=== PATIENT | male | born 1955 | race Caucasian/White ===

== ENCOUNTER 2018-09-09 17:17 | Observation (INO) ==
--- NOTE | 2018-09-09 18:20 | ED.PDOC ---
General Time Seen by Physician: 18:13 <CHARLENE SHABAZZ - Last Filed: 09/09/18 21:10> Stated Complaint: 63 y old wants to know why he has blood in urine,some pain and diarrhea. Mode of Arrival: Walk-In Information Source: Patient Exam Limitations: No limitations Nursing and Triage Documentation Reviewed and Agree: Yes Does patient meet sepsis criteria?: No System Inflammatory Response Syndrome: Not Applicable <SAL LAURENT - Last Filed: 09/13/18 19:53> ED Provider: Dr. SAL LAURENT Chief Complaint: Kidney Stone Primary Care Provider: ARELIS CEDEÑO Sepsis Protocol: For patient's 13 years and over: Temp is 96.8 and below OR 101 and greater Pulse >90 BPM Resp >20/minute Acutely Altered Mental Status Are patient's symptoms suggestive of a new infection, such as: -Pneumonia -Skin, Soft Tissue -Endocarditis -UTI -Bone, Joint Infection -Implantable Device -Acute Abdominal Infection -Wound Infection -Meningitis -Blood Stream Catheter Infection -Unknown Complaint Exam - Complaint/Exam Patient Complains of: Reports: Dysuria Onset/Duration: few days coming on Symptoms Are: Still present Timing: Intermittent Initial Severity: Mild Current Severity: Mild Location of Pain: Reports: Suprapubic Character: Reports: Colicky Aggravating: Reports: None Alleviating: Reports: None Associated Signs and Symptoms: Reports: Back pain, Nausea <SAL LAURENT - Last Filed: 09/13/18 19:53> Review of Systems - Review Of Systems GI: Reports: Abdominal pain (suprapubic ) <CHARLENE SHABAZZ - Last Filed: 09/09/18 21:10> - Review Of Systems Constitutional: Reports: Chills Eyes: Reports: No symptoms Ears, Nose, Mouth, Throat: Reports: No symptoms Respiratory: Reports: No symptoms Cardiac: Reports: No symptoms GI: Reports: Diarrhea : Reports: Dysuria, Hematuria Musculoskeletal: Reports: No symptoms Skin: Reports: No symptoms Neurological: Reports: No symptoms Endocrine: Reports: No symptoms Hematologic/Lymphatic: Reports: No symptoms All Other Systems: Reviewed and Negative <SAL LAURENT - Last Filed: 09/13/18 19:53> Past Medical History - Past Medical History Cardiovascular: Reports: Hypertension. Denies: None Gastrointestinal: Reports: GERD. Denies: None <CHARLENE SHABAZZ Last Filed: 09/09/18 21:10> - Past Medical History Previously Healthy: No Endocrine: Reports: None Cardiovascular: Reports: None Respiratory: Reports: None Hematological: Reports: None Gastrointestinal: Reports: None Genitourinary: Reports: None Neuro/Psych: Reports: None Cancer: Reports: None - Surgical History General Surgical History: Reports: None - Family History Family History: Reports: Kidney - Social History Smoking Status: Never smoker Hx Substance Use: No Alcohol Screening: None <SAL LAURENT - Last Filed: 09/13/18 19:53> Physical Exam - Physical Exam Appearance: Well-appearing Ill-appearing: Mild Pain Distress: None Eyes: MIGEL, EOMI, Conjunctiva clear ENT: Ears normal, Nose normal, Oropharynx normal Neck: Supple Respiratory: Airway patent, Breath sounds clear Cardiovascular: RRR, Pulses normal GI/: Soft, Nontender, No masses Musculoskeletal: Normal strength, ROM intact, No edema, No calf tenderness Skin: Warm, Dry Neurological: Sensation intact, Motor intact, Reflexes intact, Cranial nerves intact, Alert, Oriented Psychiatric: Affect appropriate <SAL LAURENT - Last Filed: 09/13/18 19:53> Interpretation - Radiology Interpretation Radiology Interpretation By: Radiologist Radiology Results: Positive Exam Interpreted: CT Scan (Right pole of kidney Mass suspicious for renal cell carcinoma. ) <CHARLENE SHABAZZ Last Filed: 09/09/18 21:10> Re-Evaluation - Re-Evaluation Time of Re-Evaluation: 21:00 Status: Improved <CHARLENE SHABAZZ Last Filed: 09/09/18 21:10> Physician Notification - Case Discussed Physician Notified: Dr Cedeño Time of Notification: 20:30 (Admit for obeservation, AM labs, IF fluids IV Levaquin, IV pain Medications. ) <CHARLENE SHABAZZ - Last Filed: 09/09/18 21:10> Critical Care Note - Critical Care Note Total Time (mins): 30 <CHARLENE SHABAZZ - Last Filed: 09/09/18 21:10> <SAL LAURENT - Last Filed: 09/13/18 19:53> - Critical Care Note Comments: Discussed CT findings of Right Renal mass worrisome for renal cell cancer. Patient appeared to be anxious after getting the news Given anxiety medications Discussed with Dr Cedeño and agree to admit for observation with IV fluids antibiotics (CHARLENE SHABAZZ) Course - Course Hematology/Chemistry: 09/09/18 18:35 09/09/18 18:35 <CHARLENE SHABAZZ - Last Filed: 09/09/18 21:10> - Course Hematology/Chemistry: 09/10/18 05:15 09/10/18 05:15 <SAL LAURENT - Last Filed: 09/13/18 19:53> - Course Orders, Labs, Meds: Lab Review 09/09/18 09/09/18 09/09/18 17:46 18:35 18:35 WBC 10.68 H RBC 5.24 Hgb 14.2 Hct 43.3 MCV 82.6 MCH 27.1 MCHC 32.8 RDW Coeff of Christian 14.0 Plt Count 275 Immature Gran % (Auto) 0.3 Neut % (Auto) 85.6 Lymph % (Auto) 7.5 L Emmons % (Auto) 6.0 Eos % (Auto) 0.1 Baso % (Auto) 0.5 Immature Gran # (Auto) 0.0 Neut # (Auto) 9.2 H Lymph # (Auto) 0.8 Emmons # (Auto) 0.6 Eos # (Auto) 0.0 Baso # (Auto) 0.1 Sodium 139.7 Potassium 3.84 Chloride 102.8 Carbon Dioxide 25.0 Anion Gap 15.74 BUN 13.5 Creatinine 1.45 H Estimated GFR (MDRD) 49.00 BUN/Creatinine Ratio 9.31 Glucose 119.6 H Calcium 9.65 Total Bilirubin 0.62 AST 20.3 ALT 21.5 Alkaline Phosphatase 65.7 Total Protein 8.06 Albumin 4.50 Globulin 3.56 Albumin/Globulin Ratio 1.26 Amylase Lipase Urine Color Brown Urine Clarity Cloudy Urine pH 7.5 Ur Specific [place] 1.020 Urine Protein 2+ Urine Glucose (UA) Negative Urine Ketones Negative Urine Blood 3+ Urine Nitrite Negative Urine Bilirubin 1+ Urine Urobilinogen 2.0 Ur Leukocyte Esterase Negative Urine Microscopic RBC Tntc Ur Squamous Epith Cells Not present Urine Bacteria 2+ 09/09/18 18:35 WBC RBC Hgb Hct MCV MCH MCHC RDW Coeff of Christian Plt Count Immature Gran % (Auto) Neut % (Auto) Lymph % (Auto) Emmons % (Auto) Eos % (Auto) Baso % (Auto) Immature Gran # (Auto) Neut # (Auto) Lymph # (Auto) Emmons # (Auto) Eos # (Auto) Baso # (Auto) Sodium Potassium Chloride Carbon Dioxide Anion Gap BUN Creatinine Estimated GFR (MDRD) BUN/Creatinine Ratio Glucose Calcium Total Bilirubin AST ALT Alkaline Phosphatase Total Protein Albumin Globulin Albumin/Globulin Ratio Amylase 66.0 Lipase 97.8 Urine Color Urine Clarity Urine pH Ur Specific [place] Urine Protein Urine Glucose (UA) Urine Ketones Urine Blood Urine Nitrite Urine Bilirubin Urine Urobilinogen Ur Leukocyte Esterase Urine Microscopic RBC Ur Squamous Epith Cells Urine Bacteria Orders Category Date Time Status IV [ED IV/MEDIPORT/POWERPORT] .ONCE EMERGENCY 09/09/18 18:48 Active CBC W/ AUTO DIFF Stat LAB 09/09/18 18:35 Completed COMPREHENSIVE METABOLIC PANEL Stat LAB 09/09/18 18:35 Completed URINALYSIS C & S IF INDICATED Stat LAB 09/09/18 17:46 Completed URINE CULTURE Stat LAB 09/09/18 17:46 Completed 0.9 % Sodium Chloride [Saline Flush] MEDS 09/09/18 18:48 Discontinued 1 syr IVF PRN PRN Ketorolac Tromethamine [Toradol] MEDS 09/09/18 18:49 Discontinued 30 mg IVP ONCE STA Levofloxacin/D5w [Levaquin] 100 ml MEDS 09/09/18 20:11 Discontinued IV .STK-MED Levofloxacin/D5w [Levaquin] 500 mg MEDS 09/09/18 20:07 Discontinued Premix 100 ml D5w 1 bag IV ONCE Ondansetron HCl/Pf [Zofran 4 mg/2 ml] MEDS 09/09/18 18:50 Discontinued 4 mg IVP ONCE STA Sodium Chloride 0.9% [Sodium Chloride] 1,000 ml MEDS 09/09/18 18:[address] ABD/PEL WO RENAL STONE PROT Stat RADS 09/09/18 18:26 Completed Medications Discontinued Medications Generic Name Dose Route Start Last Admin Trade Name Freq PRN Reason Stop Dose Admin Aspirin 81 mg 09/10/18 08:00 09/10/18 08:28 Aspirin Chewable PO 81 mg DAILYWM REBECCA Administration Bisoprolol Fumarate/HCTZ 1 tab 09/10/18 09:00 09/10/18 08:28 Ziac 5-6.25 Mg PO 1 tab DAILY REBECCA Administration Cholecalciferol 1,000 unit 09/11/18 09:00 Vitamin D PO EVERY OTHER DAY REBECCA Sodium Chloride 1,000 mls @ 1,000 mls/hr 09/09/18 18:49 09/09/18 18:58 Sodium Chloride IV 09/09/18 19:48 1,000 mls/hr BOLUS STA Administration Levofloxacin/Dextrose 500 mg/ 100 mls @ 100 mls/hr 09/09/18 20:07 09/09/18 20 :14 Dextrose IV 09/09/18 21:06 100 mls/hr ONCE STA Administration Potassium Chloride/Dextrose/Sod Cl 1,000 mls @ 125 mls/hr 09/09/18 21:00 08/24 05:35 D5%-Ns-Kcl 20 Meq/L Iv Criselda IV 125 mls/hr .Q8H REBECCA Administration Levofloxacin/Dextrose 500 mg/ 100 mls @ 100 mls/hr 09/10/18 21:00 Dextrose IV 09/13/18 20:59 BEDTIME REBECCA Ketorolac Tromethamine 30 mg 09/09/18 18:49 09/09/18 18:58 Toradol IVP 09/09/18 18:50 30 mg ONCE STA Administration Lorazepam 1 mg 09/09/18 20:33 09/09/18 20:41 Ativan IVP 09/09/18 20:34 1 mg ONCE STA Administration Morphine Sulfate 2 mg 09/09/18 20:44 Morphine 2 Mg/Ml Syringe IVP Q4H PRN Severe Pain Ondansetron HCl 4 mg 09/09/18 18:50 09/09/18 18:58 Zofran 4 Mg/2 Ml IVP 09/09/18 18:51 4 mg ONCE STA Administration Ondansetron HCl 4 mg 09/09/18 20:44 Zofran 4 Mg/2 Ml IVP Q6H PRN Nausea / Vomiting Pantoprazole Sodium 40 mg 09/10/18 09:00 09/10/18 08:28 Protonix Iv IVP 40 mg DAILY REBECCA Administration Sodium Chloride 1 syr 09/09/18 18:48 09/09/18 20:15 Saline Flush IVF 1 syr PRN PRN Administration To flush IV Vital Signs: Temp Pulse Resp BP Pulse Ox 09/09/18 17:17 99.4 F 69 20 164/74 H 94 L Departure - Departure Time of Disposition: 21:02 Pt referred to PMD for follow-up: No IPMP verified?: No Disposition Discussed With: Patient, Family <CHARLENE SHABAZZ - Last Filed: 09/09/18 21:10> - Departure Pt referred to PMD for follow-up: Yes IPMP verified?: No Disposition Discussed With: Patient, Family <ANASTASIIASAL - Last Filed: 09/13/18 19:53> - Departure Disposition: PLACED OBSERVATION Discharge Problem: Renal mass, right Urinary tract infection Qualifiers: Urinary tract infection type: acute cystitis Hematuria presence: with hematuria Qualified Code(s): N30.01 - Acute cystitis with hematuria Condition: Stable Allergies/Adverse Reactions: Allergies Penicillins Adverse Reaction (Verified 09/09/18 17:22) procaine [From Novocain] Adverse Reaction (Verified 09/09/18 17:22) Home Medications: Ambulatory Orders Aspirin [Aspirin Chewable] 81 mg PO DAILYWM 09/09/18 Bisoprolol Fumarate/Hctz [Ziac] 1 tab PO DAILY 09/09/18 Cholecalciferol (Vitamin D3) [Vitamin D] 1,000 unit PO EVERY OTHER DAY 09/09/18 Omeprazole [Prilosec] 20 mg PO EVERY OTHER DAY 09/09/18 Levofloxacin [Levaquin] 500 mg PO QDAC #7 tablet 09/10/18
[2018-09-09] MEDS ORDERED: TORADOL IVP STA (18:49)
[2018-09-09] MEDS ORDERED: SODIUM CHLORIDE 1,000 ML IV STA (18:49)
[2018-09-09] MEDS ORDERED: ZOFRAN 4 MG/2 ML IVP STA (18:50)
--- NOTE | 2018-09-09 19:12 | CT ---
Exam: CT scan of the abdomen pelvis without contrast. Date: 09/09/2018. Comparison: None. HISTORY: Nausea, vomiting and abdominal pain with hematuria. TECHNIQUE: Helical scan of the abdomen pelvis was performed without contrast. FINDINGS: The lung bases are clear. The lumbar spine is within normal limits. There is a densely s clerotic area in the right iliac wing measuring 2.3 x 1.1 cm. The spleen and liver have a uniform attenuation. A 1.3 x 0.8 cm probable cyst is present in the dome of the liver. The gallbladder, stomach, pancreas and adrenal glands are normal. The left kidney mensah s a normal morphology. No calculi or hydronephrosis is seen. There is a 7.9 x 7.6 x 6.2 cm mass an sing out of the upper pole of the right kidney no calculi or hydronephrosis is seen. There is asymme tric stranding of the right perinephric fat. No retroperitoneal adenopathy is present. Aorta does n ot exceed 3 cm. The small bowel and appendix are normal. The colon, pelvic sidewall and bladder are normal. The prostate measures 5.3 x 6.6 x 5.9 cm. The rectum inguinal regions are normal. Impression: The study was performed without intravenous contrast. Nonetheless, there is a 7.9 x 7.6 x 6.2 cm solid mass arising out of the upper pole of the right kidney that is renal cell cancer, unt il proven otherwise. Further workup would be recommended. No evidence of renal calculi or obstruction in either collecting system. There is mild stranding of the right perinephric fat, likely a consequence of the renal mass. Prostatic enlargement. Probable 1.3 cm hepatic cyst. Densely sclerotic area in the right iliac wing measuring 2.3 x 1.1 cm. Most common etiology is a [place], but a bone scan would be recommended to exclude a sclerotic metastatic deposit, given the f indings in the right kidney.
[2018-09-09] MEDS ORDERED: LEVAQUIN 500 MG in PREMIX 100 ML D5W 1 BAG IV STA (20:07)
[2018-09-09] MEDS ORDERED: LEVAQUIN 100 ML IV ONE (20:11)
[2018-09-09] MEDS ORDERED: ATIVAN IVP STA (20:33)
[2018-09-09] MEDS ORDERED: ZOFRAN 4 MG/2 ML IVP PRN (20:44)
[2018-09-09] MEDS ORDERED: MORPHINE 2 MG/ML SYRINGE IVP PRN (20:44)
[2018-09-09 21:40] VITALS: BMI 28.1
[2018-09-09] MEDS: D5%-NS-KCL 20 MEQ/L IV SOL 1,000 ML IV SCH (21:55)
[2018-09-10 05:07] VITALS: TEMP 98
[2018-09-10] MEDS: D5%-NS-KCL 20 MEQ/L IV SOL 1,000 ML IV SCH (05:35)
[2018-09-10] MEDS ORDERED: ASPIRIN CHEWABLE PO SCH (08:00)
[2018-09-10] MEDS ORDERED: ZIAC 5-6.25 MG PO SCH (09:00)
[2018-09-10] MEDS ORDERED: PROTONIX IV IVP SCH (09:00)
--- NOTE | 2018-09-10 09:49 | PCM.PROG ---
Attending Provider: ATTENDING PROVIDER: Dr. ARELIS CEDEÑO DATE OF SERVICE: 09/10/18 SUBJECTIVE: This 63 year old WHITE/ M was hospitalized 09/09/18 with lower abdominal cramping and low grade fever. The patient has evidence of low grade UTI. Incidental findings of a right renal mass. The patient is being treated with Levofloxacin and IV fluids. REVIEW OF SYSTEMS: CONSTITUTIONAL: No night sweats. No fatigue, malaise, lethargy. No fever or chills. HEENT: Eyes: No visual changes. No eye pain. No eye discharge. ENT: No runny nose. No epistaxis. No sinus pain. No odynophagia. No congestion. RESPIRATORY: No cough, no congestion. No hemoptysis. No shortness of breath. CARDIOVASCULAR: No angina symptoms. No CHF symptoms. No atypical chest pain for CAD. No palpitations. No orthopnea.. GASTROINTESTINAL: No abdominal pain. No nausea or vomiting. No diarrhea or constipation. No hematemesis. No hematochezia. GENITOURINARY: No urgency. No frequency. No dysuria. No hematuria. No obstructive symptoms. No discharge. No pain. No significant abnormal bleeding. MUSCULOSKELETAL: No musculoskeletal pain; no joint swelling. NEUROLOGICAL: Awake, alert, oriented to time, place and person. No headache. No neck pain. No syncope. No seizures. No dizziness. PSYCHIATRIC: Not anxious. No depression. No suicidal thoughts. No homicidal thoughts. SKIN: No rash. No lesions. No wounds. ENDOCRINE: No unexplained weight loss. No weight gain. HEMATOLOGIC/LYMPHATIC: No anemia. No purpura. No petechiae. No prolonged or excessive bleeding. No palpable lymph nodes. PHYSICAL EXAMINATION: GENERAL: The patient is awake, alert and oriented, lying in bed in no distress. VITAL SIGNS: Temperature 98.0 F, Pulse 71, Respiratory Rate 16, BP 102/66, Pulse Ox 93% HEENT: Head normocephalic, atraumatic. Eyes: Extraocular muscles are intact. Pupils are equal, round and reactive to light and accommodation. Ears: No lesions. Nose appeared normal. Throat: No exudate or erythema. NECK: Supple. No JVD, no carotid bruit. No lymphadenopathy or thyromegaly. LUNGS: Clear to auscultation. Percussion note normal. Chest symmetrical. HEART: S1, S2, no S3. No murmurs. No cyanosis or clubbing. No ascites. Pulses: Dorsalis pedis and posterior tibial pulses +1 to +2 both sides. ABDOMEN: Soft. Non-tender. Bowel sounds active. No CVA tenderness. No mass felt. EXTREMITIES: No edema. Full range of motion of all extremities, equal. NEUROLOGIC: No focal deficit. Cranial nerves II through XII are grossly intact. No headache, no double vision or headache. SKIN: Warm and dry. Intact. Turgor-normal. LYMPHATIC: No palpable lymph nodes/no lymphedema. MUSCULOSKELETAL: Normal joints with no swelling. Muscle tone is normal. LAB REVIEW: 09/10/18 05:15 09/10/18 05:15 09/10/18 05:15: Sodium 139.4, Potassium 3.72, Chloride 107.9 H, Carbon Dioxide 23.4, Anion Gap 11.82, BUN 11.9, Creatinine 1.10, Estimated GFR (MDRD) 68.00, BUN/Creatinine Ratio 10.81, Glucose 117.5 H, Calcium 8.35 L, Total Bilirubin 0.46, AST 14.0 L, ALT 15.4, Alkaline Phosphatase 47.7 L, Total Protein 6.09 L, Albumin 3.32 L, Globulin 2.77, Albumin/Globulin Ratio 1.19 09/10/18 05:15: WBC 6.38, RBC 4.54 L, Hgb 12.0 L, Hct 38.3 L, MCV 84.4, MCH 26.4 L, MCHC 31.3 L, RDW Coeff of Christian 14.1, Plt Count 172 D, Immature Gran % ( Auto) 0.2, Neut % (Auto) 71.4, Lymph % (Auto) 18.2, [place] % (Auto) 8.0, Eos % ( Auto) 1.4, Baso % (Auto) 0.8, Immature Gran # (Auto) 0.0, Neut # (Auto) 4.6, Lymph # (Auto) 1.2, [place] # (Auto) 0.5, Eos # (Auto) 0.1, Baso # (Auto) 0.1 09/09/18 18:35: Amylase 66.0, Lipase 97.8 09/09/18 18:35: Sodium 139.7, Potassium 3.84, Chloride 102.8, Carbon Dioxide 25.0, Anion Gap 15.74, BUN 13.5, Creatinine 1.45 H, Estimated GFR (MDRD) 49.00, BUN/Creatinine Ratio 9.31, Glucose 119.6 H, Calcium 9.65, Total Bilirubin 0.62, AST 20.3, ALT 21.5, Alkaline Phosphatase 65.7, Total Protein 8.06, Albumin 4.50 , Globulin 3.56, Albumin/Globulin Ratio 1.26 09/09/18 18:35: WBC 10.68 H, RBC 5.24, Hgb 14.2, Hct 43.3, MCV 82.6, MCH 27.1, MCHC 32.8, RDW Coeff of Christian 14.0, Plt Count 275, Immature Gran % (Auto) 0.3, Neut % (Auto) 85.6, Lymph % (Auto) 7.5 L, [place] % (Auto) 6.0, Eos % (Auto) 0.1, Baso % (Auto) 0.5, Immature Gran # (Auto) 0.0, Neut # (Auto) 9.2 H, Lymph # ( Auto) 0.8, [place] # (Auto) 0.6, Eos # (Auto) 0.0, Baso # (Auto) 0.1 09/09/18 17:46: Urine Color Brown, Urine Clarity Cloudy, Urine pH 7.5, Ur Specific [place] 1.020, Urine Protein 2+, Urine Glucose (UA) Negative, Urine Ketones Negative, Urine Blood 3+, Urine Nitrite Negative, Urine Bilirubin 1+, Urine Urobilinogen 2.0, Ur Leukocyte Esterase Negative, Urine Microscopic RBC Tntc, Ur Squamous Epith Cells Not present, Urine Bacteria 2+ ASSESSMENT: Please see below. 1. Lower abdominal cramping with nausea and vomiting receiving Zofran 2. Abnormal U/A receiving Levofloxacin and IV fluids. 3. Renal cell carcinoma right kidney. Wants to be referred to Urologist at [facility]. The patient had been previous seen by Dr. Betancourt and not not want to go back. The patient had prostate biopsy by Dr. Stevens several years ago. 4. High PSA but had declined any further workup during last or previous office visits. PLAN: 1. Will do chest x-ray 2. EKG will discharge if he is able to tolerate breakfast and lunch Plan and coordination of the patient's care discussed in the presence of Oven Technician and nurse. CONDITION: Stable SCRIBED BY: KRISTIE KAYE Trolley Worker scribed while in presence of service performed by Dr. ARELIS CEDEÑO on 09/10/18 ([id number])
[2018-09-10 10:12] VITALS: BP 107/62
--- NOTE | 2018-09-10 13:12 | DI ---
EXAM: CHEST FRONTAL AND LATERAL VIEWS HISTORY: Fever. COMPARISON: None FINDINGS: Heart size and mediastinal contour within normal limits. No acute infiltrates. Kiera l vascularity with no pleural fluid or pneumothorax. The bony thorax has no acute finding. IMPRESSION: No acute process.
--- NOTE | 2018-09-10 13:56 | DS ---
DATE OF SERVICE: 09/10/18 FINAL DIAGNOSIS: 1. UTI 2. Right renal mass DISCHARGE INSTRUCTIONS: Discharge home. Followup with the Urologist and me as scheduled. MEDICATIONS AT DISCHARGE: Vitamin D 3 1,000 unit PO every other day Prilosec 20mg PO every other day Ziac 1 tablet PO daily Aspirin 81mg PO daily Omnicef 300mg BID for 5 days NEW PRESCRIPTIONS: LEVAQUIN 500 MG TAKE 1 DAILY FOR 7 DAYS (ANTIBIOTIC) NEXT DOSE IS DUE TONIGHT DIET INSTRUCTIONS: As tolerated, drink water ACTIVITY: As tolerated SMOKING: Never smoker DISEASE SPECIFIC EDUCATION: Renal Mass Urology referral Appointments Medications UTI HOSPITAL COURSE: The patient was hospitalized and given Rocephin and later on put on Omnicef. He was kept in the hospital for 24 hours. The patient had possibility of UTI with cramping in the lower abdominal part, resolved. Incidental findings was right renal mass which needs to be investigated. Chest x-ray was ordered, report pending. The patient is up and about. He wanted to go to Urologist at [facility] and arrangement were made. CONDITION: Stable. TIME SPENT: More than 60 minutes. [facility]
--- NOTE | 2018-09-10 13:57 | PN ---
OBSERVATION: LEVEL 5 MTDD
[2018-09-10] MEDS ORDERED: LEVAQUIN 500 MG in PREMIX 100 ML D5W 1 BAG IV SCH (21:00)
[2018-09-11] MEDS ORDERED: VITAMIN D PO SCH (09:00)
--- NOTE | 2018-09-11 12:56 | SSS ---
DATE OF SERVICE: 09/10/18 REASON FOR CONSULTATION/ADMISSION: UTI, Kidney mass (right) HISTORY OF PRESENT ILLNESS: Symptoms started at 5am on the 4th with nausea, vomiting and abdominal pain. Also noted blood in urine, low grade fever. Self treatment at home: Phenergan, Zofran and Lomotil. REVIEW OF SYSTEMS: CONSTITUTIONAL: No night sweats. No fatigue, malaise, lethargy. Low grade fever and chills. HEENT: Eyes: No visual changes. No eye pain. No eye discharge. ENT: No runny nose. No epistaxis. No sinus pain. No sore throat. No odynophagia. No ear pain. No congestion. RESPIRATORY: No cough, no congestion. No hemoptysis. No shortness of breath. CARDIOVASCULAR: No angina symptoms. No CHF symptoms. No atypical chest pain for CAD. No palpitations. No orthopnea. GASTROINTESTINAL: No abdominal pain. No nausea or vomiting. No diarrhea or constipation. No hematemesis. No hematochezia. GENITOURINARY: No dysuria. No hematuria. No obstructive symptoms. No discharge. No pain. No significant abnormal bleeding. MUSCULOSKELETAL: No musculoskeletal pain. No joint swelling. NEUROLOGICAL: Awake, alert, oriented to time, place and person. No headache. No neck pain. No syncope. No seizures. No dizziness. PSYCHIATRIC: Not anxious. No depression. No suicidal thoughts. No homicidal thoughts. SKIN: No rash. No lesions. No wounds. ENDOCRINE: No unexplained weight loss. No weight gain. HEMATOLOGIC/LYMPHATIC: No anemia. No purpura. No petechiae. No prolonged or excessive bleeding. No palpable lymph nodes. PAST HISTORY: Hypertension Prostate biopsy GERD Seizures at age 3-4 years old. PERSONAL/FAMILY HISTORY/SOCIAL HISTORY: and lives with spouse. He is independent with ADL's. Family history of cancer. Nonsmoker. No alcohol use. No DME. Active outside the home. PHYSICAL EXAMINATION: GENERAL: The patient is male age 63. 68 inches tall, 185 pounds and BMI 28. VITAL SIGNS: Temperature 97.9, pulse 87, respiratory rate 18, blood pressure 101/65 and pulse ox 98% room air. HEENT: Head normocephalic, atraumatic. Eyes: Extraocular muscles are intact. Pupils are equal, round and reactive to light and accommodation. Ears: No lesions. Nose appeared normal. Throat: No exudate or erythema. NECK: Supple. No JVD, no carotid bruit. No lymphadenopathy or thyromegaly. LUNGS: Clear to auscultation. Percussion note normal. Chest symmetrical. HEART: S1, S2, no S3. No murmurs. No cyanosis or clubbing. No ascites. Pulses: Dorsalis pedis and posterior tibial pulses +1 to +2 bilaterally. ABDOMEN: Soft. Nontender. Bowel sounds active. No CVA tenderness. No mass felt. EXTREMITIES: No edema. Full range of motion of all extremities, equal. NEUROLOGIC: No focal deficit. Cranial nerves II through XII are grossly intact. No headache, no double vision or headache. SKIN: Not dry. Intact. Turgor - normal. LYMPHATIC: No palpable lymph nodes/no lymphedema. MUSCULOSKELETAL: Normal joints with no swelling. Muscle tone is normal. Old/present records reviewed: Yes Office records reviewed: Yes. EDUCATIONAL CARRIED OUT ABOUT: Renal mass and elevated PSA ALLERGIES: MEDICATIONS: LABS/EKG'S/X-RAY/ECHO/ABG: CT abdomen and pelvis: Prostate enlargement, Solid mass arising out of the upper pole of right kidney: 7.9x7.6x6.2cm. WBC 10.68, Hgb /HCT within normal limits. Creatinine 1.45, urine 2+ protein, 3+ blood, 1+ bilirubin, 2+ bacteria and too numerous to count RBC. PROGRESS NOTES: See EMR. DIAGNOSES: 1. UTI 2. Right renal mass 3. Elevated PSA 4. Hypertension 5. GERD RECOMMENDATIONS/PLAN: 1. Home today 09/10/18 2. Prescription Levaquin 500mg PO daily for 7 days 3. Appointment with Dr. Leahy September 16 at 1pm 4. Appointment with Dr. Herrera Landin September 24 at 9:30, take CD to appointment. TIME SPENT: More than 70 minutes. [facility]
== END 2018-09-10 13:35 | disposition home or self-care (01) ==
LOC: ED 17:17 → MEDSURG A 20:17
PROVIDERS: ADMIT Internal Medicine; ATTEND Internal Medicine
DX: R31.9 Hematuria, unspecified (principal); R19.7 Diarrhea, unspecified; R30.0 Dysuria; M54.5 Low back pain; R11.0 Nausea; N30.01 Acute cystitis with hematuria; R10.9 Unspecified abdominal pain; C64.1 Malignant neoplasm of right kidney, except renal pelvis; N39.0 Urinary tract infection, site not specified; N28.89 Other specified disorders of kidney and ureter; I10 Essential (primary) hypertension; K21.9 Gastro-esophageal reflux disease without esophagitis
CPT/HCPCS: 36415; 74176; 80053; 81001; 82150; 83690; 85025; 87086; 93005; 93010; 96361; 96365; 96367; 96375; 99284